=== PATIENT | female | born 1955 ===

== ENCOUNTER 2017-07-12 21:49 | Emergency (ER) | payer MEDICARE, OTHER ==
[2017-07-12 22:03] VITALS: BP 176/89; PULSE 91; RESP 16; TEMP 98.5; O2SAT 98
--- NOTE | 2017-07-12 22:22 | ED PDOC ---
HPI: Abdomen Time Seen by Provider: 07/12/17 22:04 Chief Complaint (Nursing): GI Problem Chief Complaint (Provider): LLQ pain History Per: Patient Additional Complaint(s): 62 yo female, PMH of DM, HTN, High Cholesterol, presents to ED with complaints of LLQ crampy abdominal pain since 7:30pm, onset after eating pizza. Patient reports gas and diarrhea. Past Medical History Reviewed: Nursing Documentation, Vital Signs Vital Signs: Last Vital Signs Temp 98.5 F 07/12/17 22:00 Pulse 91 H 07/12/17 22:00 Resp 16 07/12/17 22:00 BP 176/89 H 07/12/17 22:00 Pulse Ox 98 07/12/17 22:24 - Medical History PMH: Diabetes, HTN, Hyperlipidemia - Surgical History Surgical History: No Surg Hx - Family History Family History: States: No Known Family Hx - Living Arrangements Living Arrangements: With Family - Social History Current smoker - smoking cessation education provided: No Alcohol: None Drugs: Denies - Home Medications Home Medications: Ambulatory Orders Medication Instructions Recorded Ciprofloxacin [Cipro] 500 mg PO BID #6 tab 07/13/17 Tamsulosin [Flomax] 0.4 mg PO DAILY #10 cap 07/13/17 traMADol [Ultram] 50 mg PO Q4 #10 tab 07/13/17 - Allergies Allergies/Adverse Reactions: Allergies Allergy/AdvReac Type Severity Reaction Status Date / Time Sulfa (Sulfonamide Allergy RASH Verified 07/12/17 22:00 Antibiotics) Review of Systems ROS Statement: Except As Marked, All Systems Reviewed And Found Negative Gastrointestinal: Positive for: Abdominal Pain Physical Exam - Reviewed Nursing Documentation Reviewed: Yes Vital Signs Reviewed: Yes - Physical Exam Appears: Positive for: Well, Non-toxic, No Acute Distress Head Exam: Positive for: ATRAUMATIC, NORMAL INSPECTION, NORMOCEPHALIC Skin: Positive for: Normal Color, Warm, DRY Eye Exam: Positive for: EOMI, Normal appearance, PERRL ENT: Positive for: Normal ENT Inspection Neck: Positive for: Normal, Painless ROM Cardiovascular/Chest: Positive for: Regular Rate, Rhythm Respiratory: Positive for: CNT, Normal Breath Sounds Gastrointestinal/Abdominal: Positive for: Bowel Sounds, Soft, Tenderness (Left flank pain) Back: Positive for: Normal Inspection Extremity: Positive for: Normal ROM Neurologic/Psych: Positive for: Alert, Oriented - Laboratory Results Result Diagrams: 07/12/17 22:37 07/12/17 22:37 - ECG O2 Sat by Pulse Oximetry: 98 Medical Decision Making Medical Decision Making: IV access established and treatment initiated with IVF, Toradol Labs resulted and reviewed with Pt who demonstrated full understanding US showed 28 WBC and blood IV Cipro administered CT IMPRESSION: 1. LEFT distal ureteral calculus with moderate hydroureteronephrosis. 2. Mild endometrial thickening or fluid. Recommend nonemergent ultrasound. 3. Incidental/non-acute findings are described above. on re-eval, Pt doing well. No complaints. Stable for discharge Disposition - Clinical Impression Clinical Impression: Renal colic, Hydronephrosis - Patient ED Disposition Is Patient to be Admitted: No - Disposition Referrals: Donte Meredith Jr., MD [Staff Provider] - Disposition: Routine/Home Disposition Time: 04:39 Condition: STABLE Prescriptions: Ciprofloxacin [Cipro] 500 mg PO BID #6 tab Tamsulosin [Flomax] 0.4 mg PO DAILY #10 cap traMADol [Ultram] 50 mg PO Q4 #10 tab Instructions: Renal Colic (ED) Forms: [employer] (Fijian)
[2017-07-12 22:47] LABS: BASO # 0.1 K/uL (0.0-0.2); BASO % 0.8 % (0.0-2.0); EOS # 0.3 K/uL (0.0-0.7); EOS % 2.3 % (0.0-4.0); HEMOGLOBIN 13.1 g/dL (12.0-16.0); LYMPH # 2.9 K/uL (1.0-4.3); LYMPH % 23.4 % (20.0-40.0); MEAN CELL VOLUME 82.7 fl (81.0-99.0); MEAN CORPUSCULAR HEMOGLOBIN 26.7 pg (27.0-31.0); MEAN CORPUSCULAR HGB CONC 32.3 g/dL (33.0-37.0); MEAN PLATELET VOLUME 7.6 fl (7.2-11.7); MONO # 0.9 K/uL (0.0-0.8); MONO % 7.2 % (0.0-10.0); NEUT # 8.1 K/uL (1.8-7.0); NEUT % 66.3 % (50.0-75.0); RBC 4.92 Mil/uL (3.80-5.20); RED CELL DISTRIBUTION WIDTH 14.9 % (11.5-14.5); WHITE BLOOD COUNT 12.3 K/uL (4.8-10.8)
[2017-07-12 22:54] LABS: ALB/GLOB RATIO 1.3 (1.0-2.1); ALBUMIN 4.3 g/dL (3.5-5.0); CALCIUM 10.1 mg/dL (8.4-10.2)
[2017-07-12 22:57] LABS: SQUAMOUS EPITHIAL 2 /hpf (0-5); URINE BACTERIA RARE (<OCC); URINE BILIRUBIN NEGATIVE (NEGATIVE); URINE BLOOD LARGE (NEGATIVE); URINE CLARITY CLOUDY (Clear); URINE COLOR YELLOW (YELLOW); URINE GLUCOSE (UA) NEG (Normal); URINE LEUKOCYTE ESTERASE MOD Leu/uL (Negative); URINE NITRATE NEGATIVE (NEGATIVE); URINE PROTEIN 30 mg/dL (NEGATIVE); URINE UROBILINOGEN 0.2-1.0 mg/dL (0.2-1.0)
[2017-07-13] MEDS ORDERED: Iohexol 240 (50 ml) PO ONE (00:01)
[2017-07-13] MEDS ORDERED: Ciprofloxacin 400mg/200ml D5W 400 MG/200 ML BAG IVPB STA (00:01)
[2017-07-13] MEDS ORDERED: Iohexol 300 100 ML IJ ONE (02:00)
[2017-07-13] MEDS ORDERED: Sodium Chloride 0.9% 50 ML IV ONE (02:00)
--- NOTE | 2017-07-13 02:58 | CT ---
EXAM: CT Abdomen and Pelvis With Intravenous Contrast CLINICAL HISTORY: 62 years old, female; Pain; Abdominal pain; Localized; Left lower quadrant (llq); Additional info: Llq pain TECHNIQUE: Axial computed tomography images of the abdomen and pelvis with intravenous contrast. All CT scans at this facility use one or more dose reduction techniques, viz.: automated exposure control; ma/kV adjustment per patient size (including targeted exams where dose is matched to indication; i.e. head); or iterative reconstruction technique. Coronal and sagittal reformatted images were created and reviewed. CONTRAST: 95 mL of [id number] administered intravenously. COMPARISON: No relevant prior studies available. FINDINGS: Limitations: Motion artifact - mild. Lower thorax: Minimal peripheral atelectasis/scarring. ABDOMEN: Liver: Fatty infiltration. Gallbladder and bile ducts: No calcified stones. No ductal dilation. Pancreas: No ductal dilation. No mass. Spleen: No splenomegaly. Adrenals: No mass. Kidneys and ureters: Mild stranding about LEFT kidney. Probable LEFT renal cyst. Moderate pelvocaliectasis of LEFT kidney. Mild to moderately dilated LEFT ureter. 0.3 x 0.2 x 0.4 cm calculus within LEFT distal ureter. Stomach and bowel: No definite mural thickening. No obstruction. Appendix: Normal caliber. No inflammation. PELVIS: Bladder: Unremarkable. Reproductive: Unremarkable as visualized. ABDOMEN and PELVIS: Intraperitoneal space: No significant fluid collection. No free air. Bones/joints: Degenerative changes of spine. No acute fracture. Soft tissues: Tiny umbilical hernia containing fat. Vasculature: [id number] atherosclerotic disease. No aneurysm. Lymph nodes: No pathologically enlarged lymph nodes. IMPRESSION: 1. LEFT distal ureteral calculus with moderate hydroureteronephrosis. 2. Incidental/non-acute findings are described above.
== END 2017-07-13 04:50 | disposition home or self-care (01) ==
LOC: H.ER 21:49
DX: N13.2 Hydronephrosis with renal and ureteral calculous obstruction (principal); N23 Unspecified renal colic; E11.9 Type 2 diabetes mellitus without complications; E78.5 Hyperlipidemia, unspecified; I10 Essential (primary) hypertension
CPT/HCPCS: 74177; 80053; 81003; 82150; 83690; 85025; 96365; 96375; 99283; J0744; J1885; J2405; Q9966; Q9967

== ENCOUNTER 2017-07-16 02:06 | Emergency (ER) | payer MEDICARE ==
[2017-07-16 02:17] VITALS: BP 153/70; PULSE 88; RESP 17; TEMP 98.2; O2SAT 96
[2017-07-16] MEDS ORDERED: DiphenhydrAMINE 50 mg/ml Inj IVP STA (03:00)
[2017-07-16] MEDS ORDERED: Sodium Chloride 0.9% 1,000 ML IV STA (03:00)
[2017-07-16] MEDS ORDERED: DiphenhydrAMINE 50 mg/ml Inj ONE (03:30)
--- NOTE | 2017-07-16 03:54 | ED PDOC ---
HPI: Abdomen Time Seen by Provider: 07/16/17 02:41 Chief Complaint (Nursing): Abdominal Pain Chief Complaint (Provider): Abdominal Pain and Rash History Per: Patient History/Exam Limitations: no limitations Onset/Duration Of Symptoms: Days (x5) Current Symptoms Are (Timing): Still Present Additional Complaint(s): 62 year old female, who presents to the ED due to abdominal pain x5 days and rash x2 days. Patient was recently diagnosed with kidney stones. Patient was discharged on Flomax, Ciprofloxacin, and Tramadol. States the Ciprofloxacin gave her an itchy rash on her abdomen and back. Also reports not being able to urinate all day and lower abdominal pressure is worse on left. Denies fever, chills, nausea, or vomiting. Patient states she took no Ibuprofen. PMD: Homer Miller Past Medical History Reviewed: Historical Data, Nursing Documentation, Vital Signs Vital Signs: Last Vital Signs Temp 98.2 F 07/16/17 02:13 Pulse 88 07/16/17 02:13 Resp 17 07/16/17 02:13 BP 153/70 H 07/16/17 02:13 Pulse Ox 96 07/16/17 05:13 - Medical History PMH: Diabetes, HTN, Hyperlipidemia - Family History Family History: States: Unknown Family Hx - Home Medications Home Medications: Ambulatory Orders Medication Instructions Recorded Ciprofloxacin [Cipro] 500 mg PO BID #6 tab 07/13/17 Tamsulosin [Flomax] 0.4 mg PO DAILY #10 cap 07/13/17 traMADol [Ultram] 50 mg PO Q4 #10 tab 07/13/17 Cefdinir [Omnicef] 300 mg PO BID 5 Days cap 07/16/17 Ibuprofen [Motrin Tab] 600 mg PO Q6 #30 tab 07/16/17 predniSONE [Prednisone] 10 mg PO DAILY 3 Days tab 07/16/17 - Allergies Allergies/Adverse Reactions: Allergies Allergy/AdvReac Type Severity Reaction Status Date / Time ciprofloxacin [From Cipro] Allergy RASH Verified 07/16/17 03:33 Sulfa (Sulfonamide Allergy RASH Verified 07/16/17 02:17 Antibiotics) Review of Systems ROS Statement: Except As Marked, All Systems Reviewed And Found Negative Constitutional: Negative for: Fever, Chills Gastrointestinal: Positive for: Abdominal Pain (LLQ). Negative for: Nausea, Vomiting Genitourinary Female: Positive for: Incontinence Skin: Positive for: Rash (abdomen and back) Physical Exam - Reviewed Nursing Documentation Reviewed: Yes Vital Signs Reviewed: Yes - Physical Exam Appears: Positive for: Non-toxic, No Acute Distress Head Exam: Positive for: ATRAUMATIC, NORMAL INSPECTION, NORMOCEPHALIC Skin: Positive for: Warm, Rash (diffuse maculopapular rash to abdomen and neck, scattered in extremities) Eye Exam: Positive for: EOMI, Normal appearance, PERRL Neck: Positive for: Normal, Painless ROM, Supple Cardiovascular/Chest: Positive for: Regular Rate, Rhythm. Negative for: Murmur Respiratory: Positive for: Normal Breath Sounds. Negative for: Respiratory Distress Gastrointestinal/Abdominal: Positive for: Tenderness (mild LLQ) Back: Positive for: Normal Inspection. Negative for: L CVA Tenderness, R CVA Tenderness, Vertebral Tenderness Extremity: Positive for: Normal ROM. Negative for: Pedal Edema, Deformity Neurologic/Psych: Positive for: Alert, Oriented (x3) - Laboratory Results Result Diagrams: 07/16/17 03:30 07/16/17 03:30 - ECG O2 Sat by Pulse Oximetry: 96 (RA) Pulse Ox Interpretation: Normal Medical Decision Making Medical Decision Making: Time: 02:59 Initial Impression: Allergic reaction to Ciprofloxacin and kidney stone Plan: --BMP --CBC w/ differential --Benadryl 25 mg IVP --Sodium Chloride 0.9% 1,000 mls/hr --Prednisone 125 mg IVP --Toradol 30 mg IVP --Urine culture --Urinalysis --Reevaluation Time: 05:10 --Upon provider evaluation patient is feeling better, urinating freely, and requires no further treatment in the ED at this time. Counseling was provided and all questions were answered regarding diagnosis and need for follow up with PMD. There is agreement to discharge plan. Return if symptoms persist or worsen. Scribe Attestation: Documented by Joe Boyd, acting as a scribe for Christopher Rodriguez MD. Provider Scribe Attestation: All medical record entries made by the Scribe were at my direction and personally dictated by me. I have reviewed the chart and agree that the record accurately reflects my personal performance of the history, physical exam, medical decision making, and the department course for this patient. I have also personally directed, reviewed, and agree with the discharge instructions and disposition. Disposition - Clinical Impression Clinical Impression: Urinary hesitancy, Allergic reaction - Disposition Referrals: Donte Meredith Jr., MD [Staff Provider] - Homer Miller MD [Primary Care Provider] - Disposition: Routine/Home Disposition Time: 05:00 Condition: STABLE Prescriptions: Cefdinir [Omnicef] 300 mg PO BID 5 Days cap Ibuprofen [Motrin Tab] 600 mg PO Q6 #30 tab predniSONE [Prednisone] 10 mg PO DAILY 3 Days tab Instructions: Kidney Stones (ED), Acute Abdominal Pain (DC), Antibiotic Medication Allergy (ED), How to Strain Your Urine (ED) Forms: [employer] (Cook Islander)
[2017-07-16 04:12] LABS: BASO % 0.2 % (0.0-2.0); EOS # 0.3 K/uL (0.0-0.7); EOS % 2.7 % (0.0-4.0); HEMOGLOBIN 12.2 g/dL (12.0-16.0); LYMPH # 1.4 K/uL (1.0-4.3); LYMPH % 13.1 % (20.0-40.0); MEAN CELL VOLUME 82.7 fl (81.0-99.0); MEAN CORPUSCULAR HEMOGLOBIN 26.5 pg (27.0-31.0); MEAN CORPUSCULAR HGB CONC 32.1 g/dL (33.0-37.0); MEAN PLATELET VOLUME 7.7 fl (7.2-11.7); MONO # 0.8 K/uL (0.0-0.8); MONO % 7.4 % (0.0-10.0); NEUT % 76.6 % (50.0-75.0); NRBC % 0.1 % (0.0-0.0); RBC 4.6 Mil/uL (3.80-5.20); WHITE BLOOD COUNT 10.4 K/uL (4.8-10.8)
[2017-07-16 04:19] LABS: BLOOD UREA NITROGEN 16 mg/dl (7-17); CALCIUM 9.1 mg/dL (8.4-10.2); GFR AFRICAN-AMERICAN > 60; GFR NON-AFRICAN AMERICAN > 60
[2017-07-16 04:22] LABS: SQUAMOUS EPITHIAL 2 /hpf (0-5); URINE BACTERIA RARE (<OCC); URINE BILIRUBIN NEGATIVE (NEGATIVE); URINE BLOOD MODERATE (NEGATIVE); URINE CALCIUM OXALATE CRYSTALS RARE /hpf (<OCC); URINE CLARITY SLIGHTY-CLOUDY (Clear); URINE COLOR YELLOW (YELLOW); URINE GLUCOSE (UA) NEG (Normal); URINE LEUKOCYTE ESTERASE SMALL Leu/uL (Negative); URINE NITRATE NEGATIVE (NEGATIVE); URINE PROTEIN 30 mg/dL (NEGATIVE); URINE UROBILINOGEN 0.2-1.0 mg/dL (0.2-1.0)
== END 2017-07-16 05:52 | disposition home or self-care (01) ==
LOC: H.ER 02:06
DX: N20.0 Calculus of kidney (principal); T78.40XA Allergy, unspecified, initial encounter; E11.9 Type 2 diabetes mellitus without complications; E78.5 Hyperlipidemia, unspecified; I10 Essential (primary) hypertension
CPT/HCPCS: 80048; 81003; 85025; 87086; 96361; 96374; 96375; 99282; J1200; J1885; J2930; J7040

== ENCOUNTER 2017-12-27 10:14 | Emergency (ER) | payer MEDICARE ==
[2017-12-27 10:49] VITALS: BP 111/76; PULSE 81; RESP 22; TEMP 98.6; O2SAT 96
--- NOTE | 2017-12-27 10:53 | ED PDOC ---
HPI: Female Pain Time Seen by Provider: 12/27/17 10:36 Chief Complaint (Nursing): Female Genitourinary History Per: Patient (this 62 yo lady presents to the ER because of suprapubic pain since yesterday that is associated with urinary frequency. She noted blood and mucous in the urine this morning as well. She denies fever, back pain, nausea, vomiting or back pain. ) Past Medical History Reviewed: Historical Data, Nursing Documentation, Vital Signs Vital Signs: Last Vital Signs Temp 98.6 F 12/27/17 10:40 Pulse 81 12/27/17 10:40 Resp 22 12/27/17 10:40 BP 111/76 12/27/17 10:40 Pulse Ox 96 12/27/17 10:40 - Medical History PMH: Diabetes, HTN, Hyperlipidemia Other PMH: kidney stones - Family History Family History: States: Unknown Family Hx - Home Medications Home Medications: Ambulatory Orders Medication Instructions Recorded Ciprofloxacin [Cipro] 500 mg PO BID #6 tab 07/13/17 Tamsulosin [Flomax] 0.4 mg PO DAILY #10 cap 07/13/17 traMADol [Ultram] 50 mg PO Q4 #10 tab 07/13/17 Cefdinir [Omnicef] 300 mg PO BID 5 Days cap 07/16/17 Ibuprofen [Motrin Tab] 600 mg PO Q6 #30 tab 07/16/17 predniSONE [Prednisone] 10 mg PO DAILY 3 Days tab 07/16/17 Nitrofurantoin Macrocrystals 100 mg PO BID #10 cap 12/27/17 [Macrobid] Phenazopyridine HCl [Pyridium] 100 mg PO TID #9 tab 12/27/17 - Allergies Allergies/Adverse Reactions: Allergies Allergy/AdvReac Type Severity Reaction Status Date / Time ciprofloxacin [From Cipro] Allergy RASH Verified 12/27/17 10:39 Sulfa (Sulfonamide Allergy RASH Verified 12/27/17 10:39 Antibiotics) Review of Systems ROS Statement: Except As Marked, All Systems Reviewed And Found Negative Constitutional: Negative for: Fever, Chills Gastrointestinal: Positive for: Abdominal Pain (suprapubic). Negative for: Nausea, Vomiting Genitourinary Female: Positive for: Dysuria, Frequency, Hematuria. Negative for : Incontinence, Vaginal Discharge, Vaginal Bleeding, Pelvic Pain Musculoskeletal: Negative for: Back Pain Skin: Negative for: Rash Physical Exam - Reviewed Nursing Documentation Reviewed: Yes Vital Signs Reviewed: Yes - Physical Exam Appears: Positive for: Well, Non-toxic, No Acute Distress Head Exam: Positive for: ATRAUMATIC, NORMAL INSPECTION, NORMOCEPHALIC Skin: Positive for: Normal Color, Warm, DRY Eye Exam: Positive for: Normal appearance, EOMI ENT: Positive for: Normal ENT Inspection Neck: Positive for: Normal, Painless ROM Cardiovascular/Chest: Positive for: Regular Rate, Rhythm Respiratory: Positive for: CNT, Normal Breath Sounds Gastrointestinal/Abdominal: Positive for: Normal Exam, Soft, Tenderness ( suprapubic only; no RLQ or LLQ tenderness) Back: Positive for: Normal Inspection Extremity: Positive for: Normal ROM Neurologic/Psych: Positive for: Alert, Oriented - Laboratory Results Urine dip results: Positive for: Leukocyte Esterase, Blood - ECG O2 Sat by Pulse Oximetry: 96 Disposition - Clinical Impression Clinical Impression: Cystitis - Patient ED Disposition Is Patient to be Admitted: No Counseled Patient/Family Regarding: Diagnosis, Need For Followup, Rx Given - Disposition Referrals: Homer Miller MD [Family Provider] - [facility] [place] [Outside] Disposition: Routine/Home Disposition Time: 11:10 Condition: STABLE Prescriptions: Nitrofurantoin Macrocrystals [Macrobid] 100 mg PO BID #10 cap Phenazopyridine HCl [Pyridium] 100 mg PO TID #9 tab Instructions: Urinary Tract Infections in Adults Forms: [employer] (Maltese) - POA Present On Arrival: None
== END 2017-12-27 11:29 | disposition home or self-care (01) ==
LOC: H.ER 10:14
DX: N30.90 Cystitis, unspecified without hematuria (principal); E11.9 Type 2 diabetes mellitus without complications; E78.5 Hyperlipidemia, unspecified; I10 Essential (primary) hypertension

== ENCOUNTER 2018-05-28 20:59 | Emergency (ER) | payer MEDICARE ==
[2018-05-28 21:24] VITALS: BP 124/77; PULSE 70; RESP 18; TEMP 98; O2SAT 99
[2018-05-28] MEDS ORDERED: Fluconazole 150 MG TAB PO STA (22:36)
[2018-05-28] MEDS ORDERED: Fluconazole 150 MG TAB PO ONE (22:40)
--- NOTE | 2018-05-28 23:11 | ED PDOC ---
HPI: Female Pain Time Seen by Provider: 05/28/18 21:18 Chief Complaint (Nursing): Female Genitourinary Chief Complaint (Provider): Redness, itchiness to the external genitals x 2 weeks History Per: Patient History/Exam Limitations: no limitations Onset/Duration Of Symptoms: Days Current Symptoms Are (Timing): Still Present Additional Complaint(s): 62 o female with HTn and Dm presents for evaluation of irritation and redness to the external genitals. Pt states when she urinates it hurt but she is not sure if it is from a UTI or urine hitting her irritated skin. No abdomnial pain, back pain, etc. No fever/chills. No vaginal discharge. Pt reports some improvement with topical monistat. Past Medical History Reviewed: Historical Data, Nursing Documentation, Vital Signs Vital Signs: Last Vital Signs Temp 98 F 05/28/18 21:21 Pulse 70 05/28/18 21:21 Resp 18 05/28/18 21:21 BP 124/77 05/28/18 21:21 Pulse Ox 99 05/28/18 21:21 - Medical History PMH: Diabetes, HTN, Hyperlipidemia - Surgical History Surgical History: No Surg Hx - Family History Family History: States: Unknown Family Hx - Living Arrangements Living Arrangements: With Family - Social History Current smoker - smoking cessation education provided: No - Home Medications Home Medications: Ambulatory Orders Medication Instructions Recorded Ciprofloxacin [Cipro] 500 mg PO BID #6 tab 07/13/17 Tamsulosin [Flomax] 0.4 mg PO DAILY #10 cap 07/13/17 traMADol [Ultram] 50 mg PO Q4 #10 tab 07/13/17 RX: Cefdinir [Omnicef] 300 mg PO BID 5 Days cap 07/16/17 RX: Ibuprofen [Motrin Tab] 600 mg PO Q6 #30 tab 07/16/17 predniSONE [Prednisone] 10 mg PO DAILY 3 Days tab 07/16/17 Nitrofurantoin Macrocrystals 100 mg PO BID #10 cap 12/27/17 [Macrobid] Phenazopyridine HCl [Pyridium] 100 mg PO TID #9 tab 12/27/17 Fluconazole [Diflucan] 150 mg PO ONCE #1 tab 05/28/18 - Allergies Allergies/Adverse Reactions: Allergies Allergy/AdvReac Type Severity Reaction Status Date / Time ciprofloxacin [From Cipro] Allergy RASH Verified 05/28/18 21:21 Sulfa (Sulfonamide Allergy RASH Verified 05/28/18 21:21 Antibiotics) Review of Systems ROS Statement: Except As Marked, All Systems Reviewed And Found Negative Constitutional: Negative for: Fever, Chills Gastrointestinal: Negative for: Nausea, Vomiting, Abdominal Pain, Diarrhea Genitourinary Female: Negative for: Dysuria, Vaginal Discharge, Vaginal Bleeding, Pelvic Pain Skin: Positive for: Other Physical Exam - Reviewed Nursing Documentation Reviewed: Yes Vital Signs Reviewed: Yes - Physical Exam Appears: Positive for: Well, Non-toxic, No Acute Distress Head Exam: Positive for: ATRAUMATIC, NORMAL INSPECTION, NORMOCEPHALIC Skin: Positive for: Normal Color, Warm, DRY Eye Exam: Positive for: Normal appearance ENT: Positive for: Normal ENT Inspection Neck: Positive for: Normal Cardiovascular/Chest: Negative for: Bradycardia, Tachycardia Respiratory: Negative for: Accessory Muscle Use, Respiratory Distress Gastrointestinal/Abdominal: Positive for: Normal Exam, Soft. Negative for: Tenderness Pelvic Exam: Positive for: Other ((+) erythematous skin, external genitals, no discharge ). Negative for: External Exam Normal Back: Positive for: Normal Inspection Extremity: Positive for: Normal ROM Neurologic/Psych: Positive for: Alert, Oriented - ECG O2 Sat by Pulse Oximetry: 99 Disposition - Clinical Impression Clinical Impression: Vulvovaginitis - Patient ED Disposition Is Patient to be Admitted: No Counseled Patient/Family Regarding: Diagnosis, Need For Followup, Rx Given - Disposition Disposition: Routine/Home Disposition Time: 23:08 Condition: STABLE Prescriptions: Fluconazole [Diflucan] 150 mg PO ONCE #1 tab Instructions: Vaginal Yeast Infection (DC) Forms: [employer] (Kinyarwanda)
[2018-05-28 23:29] LABS: URINE BILIRUBIN NEGATIVE (NEGATIVE); URINE BLOOD NEGATIVE (NEGATIVE); URINE CLARITY CLOUDY (Clear); URINE COLOR YELLOW (YELLOW); URINE GLUCOSE (UA) NEG (Normal); URINE UROBILINOGEN 0.2-1.0 mg/dL (0.2-1.0)
[2018-05-28 23:45] LABS: SQUAMOUS EPITHIAL 3 /hpf (0-5); URINE CALCIUM OXALATE CRYSTALS MANY /hpf (<OCC); URINE PROTEIN TRACE mg/dL (NEGATIVE)
[2018-05-28 23:46] LABS: URINE BACTERIA FEW (<OCC); URINE LEUKOCYTE ESTERASE SMALL Leu/uL (Negative)
== END 2018-05-28 23:30 | disposition home or self-care (01) ==
LOC: H.ER 20:59
DX: N76.0 Acute vaginitis (principal); E11.9 Type 2 diabetes mellitus without complications; E78.5 Hyperlipidemia, unspecified; I10 Essential (primary) hypertension